=== PATIENT | male | born 1985 | race Caucasian/White ===

== ENCOUNTER 2020-06-06 01:49 | Emergency (ER) | payer BC ==
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
[2020-06-06] MEDS ORDERED: Acetaminophen/HYDROcodone 325-5 MG Tab PO ONE (03:04)
[2020-06-06 03:39] LABS: CHLORIDE,CL 103 mmol/L (98-107); SODIUM,NA 142 mmol/L (136-145)
[2020-06-06 03:41] LABS: ANION GAP 19.4 mmol/L (5-15)
--- NOTE | 2020-06-06 10:26 | CR ---
[id number] RAD/RAD Hand Left 3V EXAM: 3 VIEWS LEFT HAND. INDICATION: FALL COMPARISON: None. DISCUSSION: Acute multi fragmentary fracture involving the base of the 5th proximal phalanx. The fracture does not extend to the joint space. There is minimal dorsal displacement. No other fractures are identified. No dislocation. IMPRESSION: 1. As above. Omega Owens DO 06/06/20 1025 Thank you for allowing us to participate in the care of your patient.
--- NOTE | 2020-06-06 10:27 | CR ---
[id number] RAD/RAD Wrist Left 2V EXAM: 2 VIEWS LEFT WRIST. INDICATION: FALL COMPARISON: None. DISCUSSION: No fracture of the wrist, dislocation or other osseous abnormality. Minimal prominence of the scapholunate interval measuring up to 3 mm. IMPRESSION: 1. No acute osseous abnormalities involving the wrist. Omega Owens DO 06/06/20 1026 Thank you for allowing us to participate in the care of your patient.
--- NOTE | 2020-06-06 10:29 | CR ---
[id number] RAD/RAD Elbow Left 2V EXAM: 2 VIEWS LEFT ELBOW. INDICATION: FALL COMPARISON: None. DISCUSSION: Acute nondisplaced fracture of the left radial head extending into the joint space. There is a moderate left elbow joint effusion. No dislocation. No other fractures are identified. IMPRESSION: 1. As above. Omega Owens DO 06/06/20 1027 Thank you for allowing us to participate in the care of your patient.
--- NOTE | 2020-06-06 10:29 | CR ---
[id number] RAD/RAD Forearm Left 2V EXAM: 2 VIEWS LEFT FOREARM. INDICATION: FALL COMPARISON: None. DISCUSSION: No definite fracture, dislocation or other osseous abnormality. IMPRESSION: 1. No definite acute osseous abnormalities. Omega Owens DO 06/06/20 1027 Thank you for allowing us to participate in the care of your patient.
== END 2020-06-06 03:57 | disposition home or self-care (01) ==
LOC: VM.ED 01:49
DX: S62.617A Displaced fracture of proximal phalanx of left little finger, initial encounter for closed fracture (principal); Y04.0XXA Assault by unarmed brawl or fight, initial encounter
CPT/HCPCS: 36415; 73070-LT; 73090-LT; 73100-LT; 73130-LT; 80053; 80307; 85025; 99283; 99283-25; A9270-GY